=== PATIENT | male | born 1980 | race Caucasian/White ===

== ENCOUNTER 2021-04-17 20:31 | Emergency (ER) | payer OTHER ==
[2021-04-17 20:37] VITALS: BP 147/86; PULSE 76; TEMP 98; BMI 29.9
[2021-04-17] MEDS ORDERED: ASPIRIN 81 MG CHEWABLE TABLETS PO ONE (20:45)
[2021-04-17] MEDS ORDERED: ASPIRIN 81 MG CHEWABLE TABLETS ONE (21:07)
[2021-04-17 22:11] LABS: BASO % 0.9 % (0-2.0); EOS % 1.7 % (0-4.5); HEMATOCRIT 44.1 % (35.4-49); HEMOGLOBIN 15.4 GM/dL (11.7-16.9); LYMPH % 28.1 % (8-40); MCH 30.6 pg (25.7-33.7); MCHC 34.9 g/dl (32.0-35.9); MEAN CELL VOLUME 87.6 fl (80-96); MEAN PLT VOLUME 7.8 fl (7.5-11.1); MONO % 8.1 % (3.8-10.2); NEUT % 61.2 % (42.8-82.8); PLATELET COUNT 682 10^3/uL (134-434); RBC 5.03 M/mm3 (4.00-5.60); RDW 12.7 % (11.9-15.9); WHITE BLOOD COUNT 8.8 K/mm3 (4.0-10.0)
[2021-04-17 22:20] LABS: INR 1.06 (0.83-1.09); PROTHROMBIN TIME (PATIENT) 12.2 SEC (9.7-13.0)
[2021-04-17 22:22] LABS: ACTIVATED PTT 36.9 SECONDS (25.2-36.5)
[2021-04-17 22:30] LABS: ALBUMIN 4.4 g/dl (3.4-5.0)
[2021-04-17 22:31] LABS: BLOOD UREA NITROGEN 17.6 mg/dL (7-18); MAGNESIUM 2.2 mg/dL (1.8-2.4)
[2021-04-17 22:34] LABS: CREATININE 1.2 mg/dL (0.55-1.3)
[2021-04-17 22:35] LABS: BILIRUBIN,TOTAL 0.8 mg/dL (0.2-1); TOT PROT 7.6 g/dl (6.4-8.2)
== END 2021-04-17 23:11 | disposition home or self-care (01) ==
LOC: JERFT 20:31
DX: R07.9 Chest pain, unspecified (principal); R06.02 Shortness of breath
CPT/HCPCS: 36415; 71046-TC-FY; 80053; 83735; 84484; 85025; 85610; 85730; 93005; 93010; 99285-25

== ENCOUNTER 2022-10-25 10:24 | Day surgery (SDC) | payer OTHER ==
[2022-10-16 16:06] VITALS: BMI 31.0
[2022-10-25 11:04] VITALS: RESP 16
[2022-10-25 12:30] VITALS: TEMP 97.9
[2022-10-25 13:39] VITALS: BP 118/86; PULSE 58
== END 2022-10-25 12:55 | disposition home or self-care (01) ==
LOC: FASU-ENDO 10:24
PROVIDERS: ATTEND Internal Medicine Gastroenterology
PROC: 0DB68ZX Excision of Stomach, Via Natural or Artificial Opening Endoscopic, Diagnostic (ICD-10-PCS; 2022-10-25)
PROC: 0DB48ZX Excision of Esophagogastric Junction, Via Natural or Artificial Opening Endoscopic, Diagnostic (ICD-10-PCS; 2022-10-25)
PROC: 0DB98ZX Excision of Duodenum, Via Natural or Artificial Opening Endoscopic, Diagnostic (ICD-10-PCS; principal; 2022-10-25 12:12)
DX: K29.50 Unspecified chronic gastritis without bleeding (principal); K20.90 Esophagitis, unspecified without bleeding; R10.13 Epigastric pain
CPT/HCPCS: 88305-TC; 88342-TC